=== PATIENT | female | born 2000 | race African-American/Black ===

== ENCOUNTER 2021-07-22 21:54 | Emergency (ER) | payer BC, SELFPAY ==
--- NOTE | ~2021-07-22 | XR_ITS ---
EXAMINATION: XR knee LT 3V DATE: 07/22/2021 22:55 INDICATION: Left knee pain. Fall. TECHNIQUE: 3 views of left knee were obtained. COMPARISON: None. FINDINGS: Bone alignment is normal. No fracture. Joint spaces are well maintained. There is no knee j oint effusion. IMPRESSION: 1. Normal left knee. Reviewed, dictated and finalized at location A. IMPRESSION: 1. Normal left knee.
[2021-07-22 22:08] VITALS: BP 125/73; PULSE 80; RESP 18; TEMP 36.6; O2SAT 100
--- NOTE | 2021-07-22 22:10 | ED_ITS ---
HPI - Extremity Injury (Lower) General Chief Complaint: Extremity Injury, Lower Stated Complaint: fall from Aliya ritter pain Time Seen by Provider: 07/22/21 22:10 History of Present Illness HPI Narrative: 20-year-old female presents the emergency room for evaluation of left knee pain. 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 Patient is ambulatory at this time. No history of prior knee injuries. Review of Systems Review of Systems: CONSTITUTIONAL: Denies fever, chills, or sweats. EYES: Denies visual changes, redness, or discharge. ENT: Denies rhinorrhea, congestion, sore throat, or otalgia. CARDIOVASCULAR: Denies chest pain, palpitations, or edema. RESPIRATORY: Denies cough or dyspnea. GASTROINTESTINAL: Denies abdominal pain, nausea, vomiting, or diarrhea. GENITOURINARY: Denies dysuria or hematuria. SKIN: Denies rash or itching. MUSCULOSKELETAL: Reports left knee pain NEUROLOGIC: Denies headache, numbness, dizziness, or weakness. PSYCHIATRIC: Denies anxiety or depression. Exam Narrative: GENERAL: Well-appearing, well-nourished, and in no acute distress. HEAD: Normocephalic, atraumatic. EYES: PERRLA and EOMI. ENT: Nares clear, no rhinorrhea or epistaxis. Mucous membranes moist. Oropharynx without tonsillar hypertrophy exudate or other lesions. Bilateral TMs pearly carrera nonbulging NECK: Supple. No adenopathy or masses. No carotid bruits or JVD CHEST: Clear to auscultation. No respiratory distress. No wheezes rales or rhonchi HEART: Regular rate and rhythm. No murmur heard. Normal peripheral pulses. ABDOMEN: Soft, nontender, nondistended, normal active bowel sounds. EXTREMITIES: Left knee: Tenderness to the medial and lateral surfaces of the patella, no patellar tracking, no noticeable swelling, no bony abnormality, full range of motion, no joint laxity, no Gunnar's, neurovascular is intact distally SKIN sign: Warm, dry, no rash. NEURO: No focal deficits. Alert and oriented x3. PSYCH: Normal mood and affect. Course Vital Signs Vital signs: Vital Signs Temperature 36.6 C 07/22/21 22:08 Pulse Rate 80 07/22/21 22:08 Respiratory Rate 18 07/22/21 22:08 Blood Pressure 125/73 07/22/21 22:08 Pulse Oximetry 100 07/22/21 22:08 Temperature 36.6 C 07/22/21 22:08 Pulse Rate 80 07/22/21 22:08 Respiratory Rate 18 07/22/21 22:08 Blood Pressure 125/73 07/22/21 22:08 Pulse Oximetry 100 07/22/21 22:08 MDM - Extremity Injury (Lower) Imaging Data My impression: No acute bony abnormality Discharge Plan Discharge Clinical Impression: Left knee sprain Qualifiers: Encounter type: initial encounter Involved ligament of knee: unspecified ligament Qualified Code(s): S83.92XA - Sprain of unspecified site of left knee, initial encounter Patient Disposition: Home, Self-Care Condition: Stable Instructions: Antibiotic Form Follow-up/Referrals: PHYSICIAN,BIAS MACHINE OPERATOR [Primary Care Provider] - Time of Disposition: 22:57
== END 2021-07-22 23:20 | disposition home or self-care (01) ==
LOC: ANHED 23:14
PROVIDERS: Emergency Provider Nurse Practitioner Family
DX: S83.92XA Sprain of unspecified site of left knee, initial encounter (principal); W17.89XA Other fall from one level to another, initial encounter
CPT/HCPCS: 73562; 99283